=== PATIENT | male | born 1990 | race American Indian/Alaskan Native ===

== ENCOUNTER 2021-05-13 14:10 | Inpatient (IN) | payer SELFPAY ==
[2021-05-13] MEDS ORDERED: MORPHINE 4 MG/1 ML INJ IV ONE (14:29)
[2021-05-13] MEDS ORDERED: KETOROLAC 30 MG/1 ML INJ IV ONE (14:29)
[2021-05-13 15:04] LABS: INR 0.91 (0.87-1.13)
[2021-05-13 15:05] LABS: Hematocrit 44.2 % (35.5-45.6); Hemoglobin 14.3 gm/dl (11.8-15.2); Mean Corpuscular HGB Conc 33 % (32-34); Mean Corpuscular Volume 90 fl (84-94); Partial Thromboplastin Time 25.2 Sec. (24.2-36.6); Platelet Count 261 K/mm3 (140-440); Red Blood Count 4.92 M/mm3 (3.65-5.03); Red Cell Distribution Width 13.9 % (13.2-15.2)
--- NOTE | 2021-05-13 15:06 | Emergency Department Report ---
Blank Doc - Documentation Documentation: 31-year-old male that presents with sudden onset of nontraumatic right-sided chest pain and shortness of breath. 1- This is a initial triage assessment/medical screening only. Full assessment and work-up will be completed once the patient is in proper hospital gown, ED bed and in a private room setting. This initial assessment/diagnostic orders/clinical plan/ treatment(s) is/are subject to change based on pt's health status, clinical progression and re-assessment by fellow clinical providers in the ED. Further treatment and workup at subsequent clinical providers discretion. Patient/guardians urged not to elope from ED as their condition may be serious if not clinically assessed and managed. 2-cardiac work-up 3-radiologist called and stated patient has right pneumothorax 4- manager of tax notified and patient to be brought [facility]INCERE The patient was evaluated in the emergency department for symptoms described in the history of present illness. He/she was evaluated in the context of the global COVID-19 pandemic, which necessitated consideration that the patient might be at risk for infection with the virus that causes COVID-19. Institutional protocols and algorithms that pertain to the evaluation of patients at risk for COVID-19 are in a state of rapid change based on information released by regulatory bodies including the CDC and federal and state organizations. These policies and algorithms were followed during the patient's care in the emergency department. Please note that these policies, procedures and recommendations changed on a rapid basis.
--- NOTE | 2021-05-13 15:09 | XRay Report ---
CHEST PA AND LATERAL VIEWS INDICATION: Chest Pain. COMPARISON: None. FINDINGS: Support devices: None. Heart: Within normal limits. Lungs/Pleura: There is a moderate right pneumothorax, this measures 7.7 cm. No acute pulmonary findin gs. IMPRESSION: 1. Moderate right pneumothorax (approximately 40%). No acute pulmonary findings. No rib fractures are seen. CRITICAL RESULT: Right pneumothorax Time of Discovery (DAM ATTENDANT/CDT): 2:01 PM Time of Communication (DAM ATTENDANT/CDT): 2:04 PM Licensed Practitioner Receiving Report: Doug Sarmiento Read-Back Performed: Yes. Signer Name: Juan Antonio Ortega MD Signed: 05/13/2021 3:05 PM Workstation Name: [id number]
[2021-05-13] MEDS ORDERED: HYDROmorphone 1 MG/1 ML INJ IV ONE ×2 (15:10→17:57)
[2021-05-13 15:12] LABS: Alanine Aminotransferase 11 units/L (7-56); Albumin 3.9 g/dL (3.9-5); Blood Urea Nitrogen 11 mg/dL (9-20)
[2021-05-13 15:13] LABS: BUN/Creatinine Ratio 18
[2021-05-13 15:20] LABS: Calcium 9.1 mg/dL (8.4-10.2); Hemolysis Index 6
[2021-05-13] MEDS ORDERED: LIDOCAINE 1%/EPINEPHRINE 1:100,000 VIAL (20 ML) INFILTRATI NR (15:30)
[2021-05-13 15:38] LABS: Band Neutrophils # (Manual) 0.1 K/mm3; Large Platelets Few; Platelet Estimate Consistent w Auto; RBC Morphology Normal; Total Cells Counted 100
--- NOTE | 2021-05-13 15:46 | Emergency Department Report ---
HPI - General Chief Complaint: Chest Pain Time Seen by Provider: 05/13/21 14:22 - HPI HPI: 31-year-old male with no known past medical history presents complaining of acute onset of right-sided chest pain shortness of breath. The patient initially says that he woke up with the pain but his friend who is with him says that they smoked K2 out of the black and mild chest before this started. This was approximately 2 hours ago. The patient was screened and had initial orders placed including labs and a chest x-ray. Chest x-ray revealed 40% pneumothorax on the right. The patient denies any preceding symptoms or complaints including fever/chills, headache, vision change, chest pain, shortness of breath, cough, abdominal pain, focal weakness, sensory changes, or any other complaints ED Past Medical Hx - Past Medical History Previous Medical History?: No - Surgical History Past Surgical History?: Yes Additional Surgical History: inguinal hernia ED Review of Systems ROS: Stated complaint: CHEST PAIN Other details as noted in HPI Constitutional: denies: chills, fever Eyes: denies: eye pain, vision change ENT: denies: throat pain, congestion Respiratory: cough, shortness of breath Cardiovascular: chest pain. denies: palpitations, syncope Gastrointestinal: denies: abdominal pain, nausea, vomiting Genitourinary: denies: dysuria, frequency Musculoskeletal: denies: back pain, arthralgia Skin: denies: rash, lesions Neurological: denies: headache, weakness, numbness Hematological/Lymphatic: denies: easy bleeding Physical Exam - Physical Exam Vital Signs: Vital Signs 05/13/21 14:13 Temperature 97.9 F Pulse Rate 111 H Respiratory 18 Rate Blood Pressure 109/74 [Right] O2 Sat by Pulse 96 Oximetry Physical Exam: GENERAL: Well developed and well nourished. In mild distress secondary to pain HEAD: Normocephalic. No obvious signs of trauma. ENT: Moist mucous membranes. EYES: Extraocular movements are intact. Pupils are equal round and reactive to light bilaterally NECK: Supple. Full ROM is intact. Trachea is midline. LUNGS: Tachypneic. Decreased breath sounds noted at the right lung apex, otherwise clear. CARDIOVASCULAR: Regular rate and rhythm. No murmurs or rubs. VASCULAR: Cap refill < 2 seconds ABDOMEN: Abdomen is soft and nondistended. There is no significant tenderness, guarding or rebound. SKIN: Skin is warm and dry NEURO: Patient is awake, alert, and oriented. air analysis technician II-XII grossly intact. No focal deficits. Normal motor and sensory exam throughout. Normal speech. MUSCULOSKELETAL: No obvious deformities. No significant tenderness. Normal ROM throughout. ED Course Vital Signs 05/13/21 14:13 Temperature 97.9 F Pulse Rate 111 H Respiratory 18 Rate Blood Pressure 109/74 [Right] O2 Sat by Pulse 96 Oximetry - Chest Tube Chest Tube Location: fifth interspace Size of Turkish Tube (cm): 10 Chest Tube Procedure: betadine prep Anesthesia: 1% Lidocaine w/ Epi Volume Anesthetic (ccs): 7 [place] of Air [place]: Yes Number of Attempts: 2 Time of Successful Intubation: 04:20 Tube Sutured to Skin: Yes Post Procedure CXR?: Yes ED Medical Decision Making - Lab Data Result diagrams: 05/13/21 14:37 05/13/21 14:37 Lab Results 05/13/21 05/13/21 05/13/21 Range/Units 14:37 14:37 14:37 WBC 6.0 (4.5-11.0) K/mm3 RBC 4.92 (3.65-5.03) M/mm3 Hgb 14.3 (11.8-15.2) gm/dl Hct 44.2 (35.5-45.6) % MCV 90 (84-94) fl MCH 29 (28-32) pg MCHC 33 (32-34) % RDW 13.9 (13.2-15.2) % Plt Count 261 (140-440) K/mm3 Eos % (Auto) Nursery Laborer Baso % (Auto) Nursery Laborer Add Manual Diff Complete Total Counted 100 Seg Neutrophils % Nursery Laborer Seg Neuts % (Manual) 30.0 L (40.0-70.0) % Band Neutrophils % 1.0 % Lymphocytes % (Manual) 50.0 H (13.4-35.0) % Monocytes % (Manual) 3.0 (0.0-7.3) % Eosinophils % (Manual) 15.0 H (0.0-4.3) % Basophils % (Manual) 1.0 (0.0-1.8) % Nucleated RBC % Not Reportable Seg Neutrophils # Man 1.8 (1.8-7.7) K/mm3 Band Neutrophils # 0.1 K/mm3 Lymphocytes # (Manual) 3.0 (1.2-5.4) K/mm3 Abs React Lymphs (Man) 0.0 K/mm3 Monocytes # (Manual) 0.2 (0.0-0.8) K/mm3 Eosinophils # (Manual) 0.9 H (0.0-0.4) K/mm3 Basophils # (Manual) 0.1 (0.0-0.1) K/mm3 Metamyelocytes # 0.0 K/mm3 Myelocytes # 0.0 K/mm3 Promyelocytes # 0.0 K/mm3 Blast Cells # 0.0 K/mm3 WBC Morphology Not Reportable Hypersegmented Neuts Not Reportable Hyposegmented Neuts Not Reportable Hypogranular Neuts Not Reportable Smudge Cells Not Reportable Toxic Granulation Not Reportable Toxic Vacuolation Not Reportable Dohle Bodies Not Reportable Pelger-Huet Anomaly Not Reportable Branden Rods Not Reportable Platelet Estimate Consistent w auto Clumped Platelets Not Reportable Plt Clumps, EDTA Not Reportable Large Platelets Few Giant Platelets Not Reportable Platelet Satelliting Not Reportable Plt Morphology Comment Not Reportable RBC Morphology Normal Dimorphic RBCs Not Reportable Polychromasia Not Reportable Hypochromasia Not Reportable Poikilocytosis Not Reportable Anisocytosis Not Reportable Microcytosis Not Reportable Macrocytosis Not Reportable Spherocytes Not Reportable Pappenheimer Bodies Not Reportable Sickle Cells Not Reportable Target Cells Not Reportable Tear Drop Cells Not Reportable Ovalocytes Not Reportable Helmet Cells Not Reportable [place] Bodies Not Reportable [place] Rings Not Reportable [place] Cells Not Reportable Bite Cells Not Reportable Crenated Cell Not Reportable Elliptocytes Not Reportable Acanthocytes (Spur) Not Reportable Rouleaux Not Reportable Hemoglobin C Crystals Not Reportable Schistocytes Not Reportable Malaria parasites Not Reportable Dhaval Bodies Not Reportable Hem Pathologist Commnt No PT 13.3 (12.2-14.9) Sec. INR 0.91 (0.87-1.13) APTT 25.2 (24.2-36.6) Sec. D-Dimer < 135.00 (0-234) ng/mlDDU Sodium 140 (137-145) mmol/L Potassium 4.2 (3.6-5.0) mmol/L Chloride 104.8 (98-107) mmol/L Carbon Dioxide 25 (22-30) mmol/L Anion Gap 14 mmol/L BUN 11 (9-20) mg/dL Creatinine 0.6 L (0.8-1.3) mg/dL Estimated GFR > 60 ml/min BUN/Creatinine Ratio 18 % Glucose 122 H (75-100) mg/dL Calcium 9.1 (8.4-10.2) mg/dL Magnesium 1.60 L (1.7-2.3) mg/dL Total Bilirubin 0.30 (0.1-1.2) mg/dL AST 15 (5-40) units/L ALT 11 (7-56) units/L Alkaline Phosphatase 93 (35-129) units/L Troponin T < 0.010 (0.00-0.029) ng/mL Total Protein 7.3 (6.3-8.2) g/dL Albumin 3.9 (3.9-5) g/dL Albumin/Globulin Ratio 1.1 % - Radiology Data Radiology results: report reviewed, image reviewed - Medical Decision Making 31-year-old male presenting with acute onset right-sided chest pain shortness of breath after smoking K2. Patient had labs drawn in triage as well as chest x- ray which revealed 40% right-sided pneumothorax. Patient vital signs are stable. Labs have resulted and reveal no significant leukocytosis or anemia. Creatinine is within normal range and there are no significant electrolyte abnormalities. Right-sided pigtail chest tube was placed and subsequent x-ray reveals near complete reexpansion of the right lung. The patient will be admitted to the medicine for further management. I spoke with Dr. Boggs of general surgery regarding the case and he says he will place consult recommendations and manage the chest tube from the inpatient side. Spoke with Dr. Jacobo, the on-call hospitalist regarding the case. He accepts the patient for admission and will assume care. Critical care attestation.: If time is entered above; I have spent that time in minutes in the direct care of this critically ill patient, excluding procedure time. ED Disposition Clinical Impression: Pneumothorax, right Disposition: ADMITTED INPATIENT Is pt being admited?: Yes Referrals: PRIMARY CARE, [Primary Care Provider] - 3-5 Days
[2021-05-13] MEDS ORDERED: fentaNYL 100 MCG/2 ML INJ IV ONE ×2 (16:11→16:50)
[2021-05-13] MEDS ORDERED: fentaNYL 100 MCG/2 ML INJ ONE (16:11)
--- NOTE | 2021-05-13 17:00 | XRay Report ---
CHEST 1 VIEW 05/13/2021 4:41 PM INDICATION / CLINICAL INFORMATION: Confirm CT placement. COMPARISON: 05/13/2021 FINDINGS: SUPPORT DEVICES: Interval placement of a right pleural catheter HEART / MEDIASTINUM: Unchanged LUNGS / PLEURA: Near-complete resolution of right pneumothorax. There is mild atelectasis in the righ t base. ADDITIONAL FINDINGS: No significant additional findings. IMPRESSION: 1. Near-complete resolution of right pneumothorax following pleural catheter placement. Signer Name: Bruce Stern MD Signed: 05/13/2021 4:56 PM Workstation Name: [id number]
--- NOTE | 2021-05-13 17:16 | History and Physical Report ---
History of Present Illness Chief complaint: My chest hurts History of present illness: 31 YO Male with No PMH presents to ED for evaluation. Patient reports "my right side hurts". Patient states that he experienced sudden onset of pain on the right side of his chest approximately 2 hours prior to presentation. Patient transported to [facility] via private vehicle for further care and evaluation of the aforementioned symptoms. The patient was seen and evaluated in the emergency department. All lab and imaging studies reviewed. Patient with chest x-ray which revealed a right pneumothorax at 40%. A chest tube was placed in the emergency department. Surgery team consulted in ED. Patient admitted to medical floor due to increased risk of worsening symptoms. Patient denies trauma, fever, chills, chest pain, palpitation, productive cough, skin rash, recent ill contact, or known exposure to COVID-19. No prior admission for review. No medication listed at time of admission for reconciliation. Past History Past Medical History: No medical history Past Surgical History: No surgical history, Other (reviewed) Social history: single, smoking. denies: alcohol abuse, prescription drug abuse Family history: no significant family history, other (reviewed) Medications and Allergies Allergies Allergy/AdvReac Type Severity Reaction Status Date / Time peanut Allergy Swelling Verified 05/13/21 14:13 soy Allergy Swelling Verified 05/13/21 14:13 Active Meds: Active Medications Lidocaine/Epinephrine (Lidocaine 1%/Epinephrine 1:100,000 Vial (20 Ml)) 20 ml INFILTRATI ONCE NR Stop: 05/13/21 23:59 Review of Systems Constitutional: no weight loss, no weight gain, no fever, no chills Ears, nose, mouth and throat: no ear pain, no ear discharge, no decreased hearing, no nose pain Cardiovascular: no chest pain, no rapid/irregular heart beat, no edema, no syncope Respiratory: shortness of breath, pain on inspiration, no cough, no cough with sputum, no hemoptysis Gastrointestinal: no abdominal pain, no nausea, no vomiting, no constipation, no change in bowel habits Genitourinary Male: no hematuria, no flank pain, no discharge, no urinary hesitancy, no incontinence Rectal: no pain, no incontinence, no bleeding Musculoskeletal: no neck stiffness, no neck pain, no shooting arm pain, no low back pain, no shooting leg pain Integumentary: no rash, no pruritis, no redness, no sores, no wounds Neurological: no head injury, no weakness, no parathesias, no numbness, no syncope Psychiatric: no anxiety, no sleep disturbances, no insomnia, no hypersomnia, no change in libido, no suicidal ideation Endocrine: no polyphagia, no excessive thirst, no polydipsia Hematologic/Lymphatic: no easy bruising, no easy bleeding, no lymphedema Allergic/Immunologic: no urticaria, no allergic rhinitis, no anaphylaxis Exam - Constitutional Vitals: Temp Pulse Resp BP Pulse Ox 97.9 F 74 18 130/80 100 05/13/21 14:13 05/13/21 16:45 05/13/21 16:45 05/13/21 16:45 05/13/21 16:45 General appearance: Present: mild distress - EENT Eyes: Present: PERRL ENT: hearing intact, clear oral mucosa - Neck Neck: Present: supple, normal ROM - Respiratory Respiratory effort: normal, labored, accessory muscle use Respiratory: right: diminished - Cardiovascular Heart Sounds: Present: S1 & S2. Absent: rub, click - Extremities Extremities: pulses symmetrical, No edema Peripheral Pulses: within normal limits - Abdominal General gastrointestinal: Present: soft, non-tender, non-distended, normal bowel sounds Male genitourinary: Present: normal - Integumentary Integumentary: Present: clear, warm, dry - Musculoskeletal Musculoskeletal: gait normal, strength equal bilaterally - Psychiatric Psychiatric: appropriate mood/affect, intact judgment & insight - Neurologic Neurologic: CNII-XII intact, moves all extremities HEART Score - HEART Score Troponin: Troponin T < 0.010 ng/mL (0.00-0.029) 05/13/21 14:37 Results - Labs CBC & Chem 7: 05/13/21 14:37 05/13/21 14:37 Labs: Abnormal lab results 05/13/21 05/13/21 Range/Units 14:37 14:37 Seg Neuts % (Manual) 30.0 L (40.0-70.0) % Lymphocytes % (Manual) 50.0 H (13.4-35.0) % Eosinophils % (Manual) 15.0 H (0.0-4.3) % Eosinophils # (Manual) 0.9 H (0.0-0.4) K/mm3 Creatinine 0.6 L (0.8-1.3) mg/dL Glucose 122 H (75-100) mg/dL Magnesium 1.60 L (1.7-2.3) mg/dL Assessment and Plan - Patient Problems (1) Pneumothorax, right Current Visit: Yes Status: Acute Plan to address problem: Chest tube placed in the emergency department. Chest tube to low wall suction. Surgery team consulted, continue medical management. Repeat chest x-ray in a.m. Pain control. (2) Nicotine dependence Current Visit: Yes Status: Acute Qualifiers: Nicotine product type: cigarettes Substance use status: in withdrawal Qualified Code(s): F17.213 - Nicotine dependence, cigarettes, with withdrawal Plan to address problem: Smoking cessation counseling, supportive care, behavior change counseling, +15 minutes. (3) DVT prophylaxis Current Visit: Yes Status: Acute Plan to address problem: SCDs bilateral lower extremities while in bed
[2021-05-13] MEDS ORDERED: ALBUTEROL 2.5 MG/3 ML NEBU IH PRN (20:14)
[2021-05-13] MEDS ORDERED: ONDANSETRON 4 MG/2 ML INJ IV PRN (20:14)
[2021-05-13] MEDS ORDERED: ACETAMINOPHEN 325 MG TAB PO PRN (20:14)
[2021-05-13] MEDS: HYDROmorphone 1 MG/1 ML INJ IV PRN ×2 (20:33→23:32)
[2021-05-14] MEDS: oxyCODONE /ACETAMINOPHEN 5-325MG TAB PO PRN ×3 (01:38→20:05)
--- NOTE | 2021-05-14 04:02 | XRay Report ---
XR chest 1V ap INDICATION / CLINICAL INFORMATION: pneumothorax. COMPARISON: Radiograph from yesterday. FINDINGS: SUPPORT DEVICES: Right pleural catheter is unchanged. HEART /PULMONARY VASCULATURE: Unchanged. LUNGS / PLEURA: Mild bibasilar atelectasis is unchanged. No new or increasing airspace consolidation. No discrete pneumothorax. IMPRESSION: Stable position of right pleural catheter. No discrete pneumothorax. Signer Name: Fili Balderas MD Signed: 05/14/2021 3:58 AM Workstation Name: [id number]
[2021-05-14] MEDS ORDERED: MORPHINE 2 MG/1 ML INJ IV ONE (04:50)
[2021-05-14 04:56] LABS: Blood Urea Nitrogen 8 mg/dL (9-20); Calcium 9.1 mg/dL (8.4-10.2); Hemolysis Index 9
[2021-05-14 04:58] LABS: Hemoglobin 14.8 gm/dl (11.8-15.2); Mean Corpuscular HGB Conc 32 % (32-34); Mean Corpuscular Volume 89 fl (84-94); Platelet Count 269 K/mm3 (140-440); Red Blood Count 5.17 M/mm3 (3.65-5.03); Red Cell Distribution Width 13.7 % (13.2-15.2)
[2021-05-14 05:11] LABS: BUN/Creatinine Ratio 16
[2021-05-14 07:30] LABS: Total Cells Counted 100
[2021-05-14 07:31] LABS: Platelet Estimate Consistent w Auto; RBC Morphology Normal
[2021-05-14] MEDS: HYDROmorphone 1 MG/1 ML INJ IV PRN ×2 (08:06→21:58)
--- NOTE | 2021-05-14 10:19 | Consultation ---
History of Present Illness Consult date: 05/14/21 Reason for consult: other (Right spontaneous pneumothorax) - History of present illness History of present illness: This is a 31-year-old -[place] patient male who noticed a sudden onset shortness of breath reported in the emergency room was found to have a 20 to 30% pneumothorax that was spontaneous. He states that he was just walking when this shortness of breath started. In the emergency room he had a 9 Stateless tube placed with good resolution of the pneumothorax admission date and placement of the chest tube was on 05/13/2021. Past History Past Medical History: No medical history Past Surgical History: No surgical history, Other (reviewed) Social history: single, smoking. denies: alcohol abuse, prescription drug abuse Family history: no significant family history, other (reviewed) Medications and Allergies Allergies Allergy/AdvReac Type Severity Reaction Status Date / Time peanut Allergy Swelling Verified 05/13/21 14:13 soy Allergy Swelling Verified 05/13/21 14:13 Active Meds: Active Medications Acetaminophen (Acetaminophen 325 Mg Tab) 650 mg PO Q4H PRN PRN Reason: Pain MILD(1-3)/Fever >100.5/BARBA Albuterol (Albuterol 2.5 Mg/3 Ml Nebu) 2.5 mg IH Q4HRT PRN PRN Reason: Shortness Of Breath Hydromorphone HCl (Hydromorphone 1 Mg/1 Ml Inj) 0.5 mg IV Q3H PRN PRN Reason: Pain , Severe (7-10) Last Admin: 05/14/21 08:06 Dose: 0.5 mg Documented by: Ondansetron HCl (Ondansetron 4 Mg/2 Ml Inj) 4 mg IV Q8H PRN PRN Reason: Nausea And Vomiting Last Admin: 05/13/21 20:30 Dose: 4 mg Documented by: Oxycodone/Acetaminophen (Oxycodone /Acetaminophen 5-325mg Tab) 1 tab PO Q6H PRN PRN Reason: Pain, Moderate (4-6) Last Admin: 05/14/21 01:38 Dose: 1 tab Documented by: Sodium Chloride (Sodium Chloride 0.9% 10 Ml Flush Syringe) 10 ml IV BID SARITA Last Admin: 05/13/21 21:45 Dose: 10 ml Documented by: Sodium Chloride (Sodium Chloride 0.9% 10 Ml Flush Syringe) 10 ml IV PRN PRN PRN Reason: LINE FLUSH Exam Vital Signs Temp Pulse Resp BP Pulse Ox 97.9 F 111 H 18 109/74 96 05/13/21 14:13 05/13/21 14:13 05/13/21 14:13 05/13/21 14:13 05/13/21 14:13 - General physical appearance Positive: well developed, well nourished - Eyes Positive: PERRL, normal occular movement - Neck Positive: no masses, no bruits - Respiratory Positive: normal expansion, clear to percussion, other (Breath sounds are equal bilaterally.) - Cardiovascular Rhythm: regular - Extremities Extremities: no ischemia, No edema - Abdomen Abdomen: Present: soft, tender - Neurologic Neurologic: alert and oriented to time, place and person, motor strength and sensation are grossly intact, CN II-XII intact Results - Labs 05/14/21 04:06 05/14/21 04:06 Abnormal lab results 05/13/21 05/13/21 05/14/21 Range/Units 14:37 14:37 04:06 RBC 5.17 H (3.65-5.03) M/mm3 Hct 46.0 H (35.5-45.6) % Seg Neuts % (Manual) 30.0 L (40.0-70.0) % Lymphocytes % (Manual) 50.0 H 13.0 L (13.4-35.0) % Eosinophils % (Manual) 15.0 H (0.0-4.3) % Eosinophils # (Manual) 0.9 H 1.7 H (0.0-0.4) K/mm3 BUN (9-20) mg/dL Creatinine 0.6 L (0.8-1.3) mg/dL Glucose 122 H (75-100) mg/dL Magnesium 1.60 L (1.7-2.3) mg/dL 05/14/21 Range/Units 04:06 RBC (3.65-5.03) M/mm3 Hct (35.5-45.6) % Seg Neuts % (Manual) (40.0-70.0) % Lymphocytes % (Manual) (13.4-35.0) % Eosinophils % (Manual) (0.0-4.3) % Eosinophils # (Manual) (0.0-0.4) K/mm3 BUN 8 L (9-20) mg/dL Creatinine 0.5 L (0.8-1.3) mg/dL Glucose (75-100) mg/dL Magnesium (1.7-2.3) mg/dL Diabetes panel 05/13/21 05/14/21 Range/Units 14:37 04:06 Sodium 140 138 (137-145) mmol/L Potassium 4.2 3.6 (3.6-5.0) mmol/L Chloride 104.8 101.2 (98-107) mmol/L Carbon Dioxide 25 27 (22-30) mmol/L BUN 11 8 L (9-20) mg/dL Creatinine 0.6 L 0.5 L (0.8-1.3) mg/dL Glucose 122 H 97 (75-100) mg/dL Calcium 9.1 9.1 (8.4-10.2) mg/dL AST 15 (5-40) units/L ALT 11 (7-56) units/L Alkaline Phosphatase 93 (35-129) units/L Total Protein 7.3 (6.3-8.2) g/dL Albumin 3.9 (3.9-5) g/dL Calcium panel 05/13/21 05/14/21 Range/Units 14:37 04:06 Calcium 9.1 9.1 (8.4-10.2) mg/dL Albumin 3.9 (3.9-5) g/dL Pituitary panel 05/13/21 05/14/21 Range/Units 14:37 04:06 Sodium 140 138 (137-145) mmol/L Potassium 4.2 3.6 (3.6-5.0) mmol/L Chloride 104.8 101.2 (98-107) mmol/L Carbon Dioxide 25 27 (22-30) mmol/L BUN 11 8 L (9-20) mg/dL Creatinine 0.6 L 0.5 L (0.8-1.3) mg/dL Glucose 122 H 97 (75-100) mg/dL Calcium 9.1 9.1 (8.4-10.2) mg/dL Adrenal panel 05/13/21 05/14/21 Range/Units 14:37 04:06 Sodium 140 138 (137-145) mmol/L Potassium 4.2 3.6 (3.6-5.0) mmol/L Chloride 104.8 101.2 (98-107) mmol/L Carbon Dioxide 25 27 (22-30) mmol/L BUN 11 8 L (9-20) mg/dL Creatinine 0.6 L 0.5 L (0.8-1.3) mg/dL Glucose 122 H 97 (75-100) mg/dL Calcium 9.1 9.1 (8.4-10.2) mg/dL Total Bilirubin 0.30 (0.1-1.2) mg/dL AST 15 (5-40) units/L ALT 11 (7-56) units/L Alkaline Phosphatase 93 (35-129) units/L Total Protein 7.3 (6.3-8.2) g/dL Albumin 3.9 (3.9-5) g/dL Assessment and Plan Patient with spontaneous pneumothorax on the right side managed nicely with 9 Stateless pigtail catheter. Recommend clamping the tube today and if the p neumothorax does not recur removing the pigtail catheter later this afternoon.
--- NOTE | 2021-05-14 22:42 | Progress Note ---
Assessment and Plan - Patient Problems (1) Pneumothorax, right Current Visit: Yes Status: Acute Plan to address problem: Chest tube placed in the emergency department. Chest tube to low wall suction. Surgery team consulted, continue medical management. Repeat chest x-ray in a.m. Pain control. Continue chest tube Partial reexpansion Pain management (2) Nicotine dependence Current Visit: Yes Status: Acute Qualifiers: Nicotine product type: cigarettes Substance use status: in withdrawal Qualified Code(s): F17.213 - Nicotine dependence, cigarettes, with withdrawal Plan to address problem: Smoking cessation counseling, supportive care, behavior change counseling, +15 minutes. (3) DVT prophylaxis Current Visit: Yes Status: Acute Plan to address problem: SCDs bilateral lower extremities while in bed Subjective Date of service: 05/14/21 Principal diagnosis: Right pneumothorax Interval history: 31 YO Male with No PMH presents to ED for evaluation. Patient reports "my right side hurts". Patient states that he experienced sudden onset of pain on the right side of his chest approximately 2 hours prior to presentation. Patient transported to [facility] via private vehicle for further care and evaluation of the aforementioned symptoms. The patient was seen and evaluated in the emergency department. All lab and imaging studies reviewed. Patient with chest x-ray which revealed a right pneumothorax at 40%. A chest tube was placed in the emergency department. Surgery team consulted in ED. Patient admitted to medical floor due to increased risk of worsening symptoms. Patient denies trauma, fever, chills, chest pain, palpitation, productive cough, skin rash, recent ill contact, or known exposure to COVID-19. No prior admission for review. No medication listed at time of admission for reconciliation. 05/14/[address] Right lung partially expanded We will monitor him for another 24 hours No shortness of breath Objective - Constitutional Vitals: Vital Signs - 12hr 05/14/21 05/14/21 05/14/21 11:01 12:01 20:01 Pulse Rate 63 Respiratory 13 Rate Blood Pressure 119/86 128/74 112/79 O2 Sat by Pulse 98 96 98 Oximetry 05/14/21 21:58 Pulse Rate Respiratory 20 Rate Blood Pressure O2 Sat by Pulse Oximetry General appearance: Present: no acute distress, well-nourished - EENT Eyes: PERRL, EOM intact ENT: hearing intact, clear oral mucosa Ears: bilateral: normal - Neck Neck: supple, normal ROM - Respiratory Respiratory effort: normal Respiratory: right: diminished, bilateral: CTA - Breasts Breasts: normal - Cardiovascular Heart rate: 78 Rhythm: regular Heart Sounds: Present: S1 & S2. Absent: gallop, rub Extremities: pulses intact, No edema, normal color, Full ROM - Gastrointestinal General gastrointestinal: Present: soft, non-tender, non-distended, normal bowel sounds - Genitourinary Male genitourinary: normal - Integumentary Integumentary: clear, warm, dry - Musculoskeletal Musculoskeletal: 1, strength equal bilaterally - Neurologic Neurologic: moves all extremities - Psychiatric Psychiatric: memory intact, appropriate mood/affect, intact judgment & insight - Labs CBC & Chem 7: 05/14/21 04:06 05/14/21 04:06 Labs: Abnormal lab results 05/14/21 05/14/21 Range/Units 04:06 04:06 RBC 5.17 H (3.65-5.03) M/mm3 Hct 46.0 H (35.5-45.6) % Lymphocytes % (Manual) 13.0 L (13.4-35.0) % Eosinophils # (Manual) 1.7 H (0.0-0.4) K/mm3 BUN 8 L (9-20) mg/dL Creatinine 0.5 L (0.8-1.3) mg/dL HEART Score - HEART Score Troponin: Troponin T < 0.010 ng/mL (0.00-0.029) 05/13/21 14:37
[2021-05-15] MEDS: oxyCODONE /ACETAMINOPHEN 5-325MG TAB PO PRN ×2 (02:08→16:47)
[2021-05-15] MEDS: HYDROmorphone 1 MG/1 ML INJ IV PRN ×3 (06:31→22:08)
--- NOTE | 2021-05-15 08:30 | Progress Note ---
Assessment and Plan Patient with spontaneous pneumothorax on the right side managed nicely with 9 [place] pigtail catheter. Chest tube clamped yesterday with return of symptoms of pain and shortness of breath. We will attempt to manage on waterseal today and repeat chest x-ray after 2 hours of waterseal. Subjective Date of service: 05/15/21 Narrative: Chest tube clamped yesterday with return of symptoms of pain and shortness of breath. We will attempt to manage on waterseal today and repeat chest x-ray after 2 hours of waterseal. Objective Vital Signs - 12hr 05/14/21 05/14/21 05/14/21 21:05 21:58 22:00 Respiratory 19 20 20 Rate O2 Sat by Pulse 98 Oximetry 05/14/21 05/15/21 05/15/21 22:28 02:08 03:08 Respiratory 18 18 18 Rate O2 Sat by Pulse Oximetry 05/15/21 05/15/21 06:31 07:01 Respiratory 18 18 Rate O2 Sat by Pulse Oximetry - Respiratory normal expansion - Labs 05/14/21 04:06 05/14/21 04:06 - Imaging Chest x-ray: report reviewed, image reviewed
--- NOTE | 2021-05-15 11:39 | XRay Report ---
CHEST 1 VIEW 05/15/2021 10:30 AM INDICATION / CLINICAL INFORMATION: pain. COMPARISON: 05/14/2021 FINDINGS: SUPPORT DEVICES: Stable, satisfactory device positioning. HEART / MEDIASTINUM: No significant abnormality. LUNGS / PLEURA: No significant pulmonary or pleural abnormality. No pneumothorax. ADDITIONAL FINDINGS: No significant additional findings. IMPRESSION: 1. Stable positioning of a right-sided chest tube without pneumothorax. Signer Name: Christiano Abraham DO Signed: 05/15/2021 11:34 AM Workstation Name: [id number]
--- NOTE | 2021-05-15 14:28 | Electrocardiograph Report ---
[facility] Test Date: 2021-05-13 Test Time: 14:20:35 Pat Name: ADIS INFANTE Department: Room: A384 Gender: M Demolition Specialist: BING : 1990 Requested By: ALEXANDER BARAJAS Order Number: [id number] Reading MD: Radha Leone Measurements Intervals [place] Rate: 91 P: 25 AR: 205 QRS: 30 QRSD: 74 T: 45 QT: 340 QTc: 420 Interpretive Statements Sinus rhythm Prolonged AR interval No previous ECG available for comparison Electronically Signed On 05-15-2021 14:28:24 EST by Radha Leone
--- NOTE | 2021-05-15 15:23 | Progress Note ---
Assessment and Plan - Patient Problems (1) Pneumothorax, right Current Visit: Yes Status: Acute Plan to address problem: Chest tube placed in the emergency department. Chest tube to low wall suction. Surgery team consulted, continue medical management. Repeat chest x-ray in a.m. Pain control. Right chest fully expanded Chest x-rays reviewed along with the patient's family Chest tube to be removed in the morning (2) Nicotine dependence Current Visit: Yes Status: Acute Qualifiers: Nicotine product type: cigarettes Substance use status: in withdrawal Qualified Code(s): F17.213 - Nicotine dependence, cigarettes, with withdrawal Plan to address problem: Counseled about smoking cessation again. +15 minutes (3) DVT prophylaxis Current Visit: Yes Status: Acute Plan to address problem: SCDs bilateral lower extremities while in bed Subjective Date of service: 05/15/21 Principal diagnosis: Right pneumothorax Interval history: 31 YO Male with No PMH presents to ED for evaluation. Patient reports "my right side hurts". Patient states that he experienced sudden onset of pain on the right side of his chest approximately 2 hours prior to presentation. Patient transported to [facility] via private vehicle for further care and evaluation of the aforementioned symptoms. The patient was seen and evaluated in the emergency department. All lab and imaging studies reviewed. Patient with chest x-ray which revealed a right pneumothorax at 40%. A chest tube was placed in the em ergency department. Surgery team consulted in ED. Patient admitted to medical floor due to increased risk of worsening symptoms. Patient denies trauma, fever, chills, chest pain, palpitation, productive cough, skin rash, recent ill contact, or known exposure to COVID-19. No prior admission for review. No medication listed at time of admission for reconciliation. 05/14/[address] Right lung partially expanded We will monitor him for another 24 hours No shortness of breath 05/15/[address] Right lung fully expanded Remove the chest tube tomorrow morning Surgery consult and follow-up appreciated Objective - Constitutional Vitals: Vital Signs - 12hr 05/15/21 05/15/21 05/15/21 05:34 06:31 07:01 Temperature 97.8 F Pulse Rate 69 Respiratory 16 18 18 Rate Blood Pressure 125/79 O2 Sat by Pulse 96 Oximetry 05/15/21 05/15/21 10:00 11:08 Temperature 98.1 F Pulse Rate 64 Respiratory 20 16 Rate Blood Pressure 115/81 O2 Sat by Pulse 97 99 Oximetry General appearance: Present: no acute distress, well-nourished - EENT Eyes: PERRL, EOM intact ENT: hearing intact, clear oral mucosa Ears: bilateral: normal - Neck Neck: supple, normal ROM - Respiratory Respiratory effort: normal Respiratory: bilateral: CTA - Breasts Breasts: normal - Cardiovascular Heart rate: 70 Rhythm: regular Heart Sounds: Present: S1 & S2. Absent: gallop, rub Extremities: pulses intact, No edema, normal color, Full ROM - Gastrointestinal General gastrointestinal: Present: soft, non-tender, non-distended, normal bowel sounds - Genitourinary Male genitourinary: normal - Integumentary Integumentary: clear, warm, dry - Musculoskeletal Musculoskeletal: 1, strength equal bilaterally - Neurologic Neurologic: moves all extremities - Psychiatric Psychiatric: memory intact, appropriate mood/affect, intact judgment & insight - Labs CBC & Chem 7: 05/14/21 04:06 05/14/21 04:06 Labs: Chest x-ray Stable positioning of a right-sided chest tube without pneumothorax HEART Score - HEART Score Troponin: Troponin T < 0.010 ng/mL (0.00-0.029) 05/13/21 14:37
[2021-05-16] MEDS: HYDROmorphone 1 MG/1 ML INJ IV PRN (08:44)
--- NOTE | 2021-05-16 09:20 | XRay Report ---
CHEST 1 VIEW 05/16/2021 7:42 AM INDICATION / CLINICAL INFORMATION: chest tube placement. COMPARISON: 05/15/2021 FINDINGS: SUPPORT DEVICES: Right pleural catheter appears unchanged. HEART / MEDIASTINUM: No significant abnormality. LUNGS / PLEURA: No significant pulmonary or pleural abnormality. No pneumothorax. ADDITIONAL FINDINGS: No significant additional findings. IMPRESSION: 1. No acute findings. No significant change. Signer Name: Bruce Stern MD Signed: 05/16/2021 9:15 AM Workstation Name: [email or web address]
[2021-05-16 12:01] VITALS: BP 113/63
--- NOTE | 2021-05-16 14:05 | Discharge Summary ---
Providers - Providers Date of Admission: 05/13/21 20:14 Date of discharge: 05/16/21 Attending physician: JULY EM 05/13/21 17:57 Consult to Physician [CONS] Routine Comment: Consulting Provider: AMEYA RODGERS Physician Instructions: Reason For Exam: chest tube management Primary care physician: LEAD PROCESS ENGINEER Hospitalization Condition: Stable Hospital course: Subjective Date of service: 05/15/21 Principal diagnosis: Right pneumothorax Interval history: 31 YO Male with No PMH presents to ED for evaluation. Patient reports "my right side hurts". Patient states that he experienced sudden onset of pain on the right side of his chest approximately 2 hours prior to presentation. Patient transported to [facility] via private vehicle for further care and evaluation of the aforementioned symptoms. The patient was seen and evaluated in the emergency department. All lab and imaging studies reviewed. Patient with chest x-ray which revealed a right pneumothorax at 40%. A chest tube was placed in the emergency department. Surgery team consulted in ED. Patient admitted to medical floor due to increased risk of worsening symptoms. Patient denies trauma, fever, chills, chest pain, palpitation, productive cough, skin rash, recent ill contact, or known exposure to COVID-19. No prior admission for review. No medication listed at time of admission for reconciliation. 05/14/[address] Right lung partially expanded We will monitor him for another 24 hours No shortness of breath 05/15/[address] Right lung fully expanded Remove the chest tube tomorrow morning Surgery consult and follow-up appreciated 05/16/2021 Chest tube removed this morning Patient doing well No shortness of breath Assessment and Plan - Patient Problems (1) Pneumothorax, right Current Visit: Yes Status: Acute Plan to address problem: Chest tube placed in the emergency department. Chest tube to low wall suction. Surgery team consulted, continue medical management. Repeat chest x-ray in a.m. Pain control. Right chest fully expanded Chest x-rays reviewed along with the patient's family Chest tube removed this morning (2) Nicotine dependence Current Visit: Yes Status: Acute Qualifiers: Nicotine product type: cigarettes Substance use status: in withdrawal Qualified Code(s): F17.213 - Nicotine dependence, cigarettes, with withdrawal Plan to address problem: Counseled about smoking cessation again. +15 minutes (3) DVT prophylaxis Current Visit: Yes Status: Acute Plan to address problem: SCDs bilateral lower extremities while in bed Disposition: 01 HOME / SELF CARE / HOMELESS Final Discharge Diagnosis (Prints w/discharge instructions): Right pneumothorax. Nicotine dependence. Pain management Time spent for discharge: 35 minutes - Discharge Diagnoses (1) Pneumothorax, right Status: Acute (2) Nicotine dependence Status: Acute Qualifiers: Nicotine product type: cigarettes Substance use status: in withdrawal Qualified Code(s): F17.213 - Nicotine dependence, cigarettes, with withdrawal (3) DVT prophylaxis Status: Acute Core Measure Documentation - Palliative Care Palliative Care/ Comfort Measures: Not Applicable - Core Measures Any of the following diagnoses?: none Exam - Constitutional Vitals: Temp Pulse Resp BP Pulse Ox 98.0 F 77 18 113/63 95 05/16/21 10:46 05/16/21 10:46 05/16/21 10:46 05/16/21 10:46 05/16/21 10:46 General appearance: Present: no acute distress, well-nourished - EENT Eyes: Present: PERRL ENT: hearing intact, clear oral mucosa - Neck Neck: Present: supple, normal ROM - Respiratory Respiratory effort: normal Respiratory: bilateral: CTA - Cardiovascular Heart rate: 80 Rhythm: regular Heart Sounds: Present: S1 & S2. Absent: rub, click - Extremities Extremities: pulses symmetrical, No edema Peripheral Pulses: within normal limits - Abdominal General gastrointestinal: Present: soft, non-tender, non-distended, normal bowel sounds Male genitourinary: Present: normal - Integumentary Integumentary: Present: clear, warm, dry - Musculoskeletal Musculoskeletal: gait normal, strength equal bilaterally - Psychiatric Psychiatric: appropriate mood/affect, intact judgment & insight - Neurologic Neurologic: CNII-XII intact, moves all extremities Plan Activity: no restrictions Diet: regular Follow up with: AMEYA RODGERS MD [Staff Physician] - 7 Days ELOINA CORRAL MD [Staff Physician] - 7 Days
--- NOTE | 2021-05-16 15:01 | XRay Report ---
. CHEST 2 VIEWS INDICATION / CLINICAL INFORMATION: History of pneumothorax. COMPARISON: 05/16/2021 FINDINGS: SUPPORT DEVICES: None. HEART / MEDIASTINUM: No significant abnormality. LUNGS / PLEURA: No significant pulmonary or pleural abnormality. No pneumothorax. ADDITIONAL FINDINGS: No significant additional findings. IMPRESSION: 1. No acute findings. Signer Name: Dustin Doyle MD Signed: 05/16/2021 2:57 PM Workstation Name: [id number]
== END 2021-05-16 16:33 | disposition home or self-care (01) | DRG 201 ==
LOC: ED 14:10 → 3A 20:14
PROVIDERS: ADMIT Internal Medicine; ATTEND Internal Medicine
DX: J93.9 Pneumothorax, unspecified (principal); F17.200 Nicotine dependence, unspecified, uncomplicated
CPT/HCPCS: 36415; 71045; 71046; 80048; 80053; 83735; 84484; 85007; 85025; 85379; 85610; 85730; 93005; 99285; G0378; J3490; J1170; J2270; J2405; J3010

== ENCOUNTER 2021-05-20 14:29 | Emergency (ER) | payer SELFPAY ==
[2021-05-20] MEDS ORDERED: fentaNYL 100 MCG/2 ML INJ IV ONE (15:19)
--- NOTE | 2021-05-20 15:27 | XRay Report ---
CHEST 1 VIEW 05/20/2021 3:04 PM INDICATION / CLINICAL INFORMATION: Shortness of breath and recent right pneumothorax. COMPARISON: 05/16/21. FINDINGS: SUPPORT DEVICES: None. HEART / MEDIASTINUM: The heart size and pulmonary vasculature are normal. There is slight mediastinal shift to the left. LUNGS / PLEURA: Complete collapse of the right lung. The left lung is clear. No pleural abnormality. There is a very large right pneumothorax with associated complete collapse of the right lung ADDITIONAL FINDINGS: No significant additional findings. IMPRESSION: Very large recurrent right pneumothorax with complete collapse of the right lung and mild tension. CRITICAL RESULT Time of Discovery (GOLF CLUB FACER/CDT): 2:18 PM Time of Communication (GOLF CLUB FACER/CDT): 2:18 PM Licensed Practitioner Receiving Report: Dr. Rocha Read-Back Performed: Not applicable. Signer Name: Andriy Cruz MD Signed: 05/20/2021 3:22 PM Workstation Name: [id number]
[2021-05-20] MEDS ORDERED: ONDANSETRON 4 MG/2 ML INJ ONE (15:42)
[2021-05-20] MEDS ORDERED: ONDANSETRON 4 MG/2 ML INJ IV ONE (15:43)
[2021-05-20] MEDS ORDERED: LIDOCAINE 1%/EPINEPHRINE 1:100,000 VIAL (20 ML) INFILTRATI NR (16:00)
[2021-05-20] MEDS ORDERED: HYDROmorphone 1 MG/1 ML INJ IV ONE ×5 (16:37→22:31)
[2021-05-20] MEDS ORDERED: HYDROmorphone 1 MG/1 ML INJ ONE (16:38)
--- NOTE | 2021-05-20 16:38 | XRay Report ---
CHEST 1 VIEW 05/20/2021 4:21 PM INDICATION / CLINICAL INFORMATION: POST CHEST TUBE PLACEMENT. COMPARISON: Earlier today at 3:04 PM. FINDINGS: SUPPORT DEVICES: There is a new right pleural catheter with the tip overlying the upper hemithorax la terally. HEART / MEDIASTINUM: Mediastinal shift to the left has resolved. LUNGS / PLEURA: There has been reexpansion of the right lung. There is mild patchy right basilar atel ectasis. No pleural effusion. The left lung is clear. Large right pneumothorax has completely resolve d. ADDITIONAL FINDINGS: No significant additional findings. IMPRESSION: New right chest tube with interval resolution of the large pneumothorax. Mild patchy atel ectasis in the right lower lung. Signer Name: Andriy Cruz MD Signed: 05/20/2021 4:33 PM Workstation Name: [id number]
--- NOTE | 2021-05-20 16:58 | Emergency Department Report ---
ED Shortness of Breath HPI - General Chief Complaint: Dyspnea/Respdistress Stated Complaint: SPONTANEOUS PNEUMO Time Seen by Provider: 05/20/21 14:54 Source: EMS Mode of arrival: Stretcher Limitations: No Limitations - History of Present Illness Initial Comments: 31-year-old male presents to the hospital with recurrent complaint of right- sided chest pain and shortness of breath. Patient was seen here May 13 for similar symptoms and diagnosed with a 40% pneumothorax. Patient had a Cook thoracostomy tube placed and was subsequently discharged on May 16 with improved Pneumonthorax and chest tube was removed prior to discharge. It is documented on previous regular patient symptoms while smoking K2 and black amount. Patient states that he smokes Black and mild and marijuana only. Today while at rest he had recurrent right-sided chest pain and shortness of breath with pain with swallowing. Patient transported well on nonrebreather with suspected recurrent pneumothorax due to diminished breath sounds on the right - Related Data Previous Rx's Medication Instructions Recorded Last Taken Type Oxycodone HCl/Acetaminophen 1 each PO Q6HR PRN #10 tablet 05/16/21 Unknown Rx [Percocet 7.5/325 mg] Allergies Allergy/AdvReac Type Severity Reaction Status Date / Time corn Allergy Swelling Verified 05/16/21 14:05 peanut Allergy Swelling Verified 05/13/21 14:13 soy Allergy Swelling Verified 05/13/21 14:13 green beans Allergy Swelling Uncoded 05/16/21 14:05 ED Review of Systems ROS: Stated complaint: SPONTANEOUS PNEUMO Other details as noted in HPI Comment: All other systems reviewed and negative ED Past Medical Hx - Past Medical History Hx Congestive Heart Failure: No Hx Diabetes: No Hx Asthma: Yes Hx COPD: No Hx HIV: No - Surgical History Hx Pacemaker: No Additional Surgical History: inguinal hernia - Social History Smoking Status: Current Every Day Smoker - Medications Home Medications: Home Medications Medication Instructions Recorded Confirmed Last Taken Type Oxycodone HCl/Acetaminophen 1 each PO Q6HR PRN #10 tablet 05/16/21 Unknown Rx [Percocet 7.5/325 mg] ED Physical Exam - General Limitations: No Limitations - Other Other exam information: General: No acute distress Head: Atraumatic Eyes: normal appearance ENT: Moist mucous membranes Neck: Normal appearance, no midline tenderness Chest: Absent right-sided breath sounds CV: Regular rate and rhythm Abdomen: Soft, normal bowel sounds, nontender, nondistended, no rebound or guarding Back: Normal inspection Extremity: Normal inspection, full range of motion Neuro: Alert O x 3, no facial asymmetry, speech clear, no gross motor sensory deficit Psych: Appropriate behavior Skin: No rash ED Course Vital Signs 05/20/21 05/20/21 05/20/21 15:50 16:45 16:50 Respiratory 20 20 16 Rate 05/20/21 18:15 Respiratory 13 Rate - Consultations Consultation #1: 05/20/21 16:[address] Triplett home demonstrator surgeon for chest tube management during admission 05/20/21 17:00 DR Triplett returned call and will manage chest tube during admission. 05/20/21 17:09 case d/w DR Vega pulmonology, rec transfer to hospital with cardiothoracic surgery for possible VATS procedure 05/20/21 17:[address] Acevedo cardiothoracic surgeon at [facility] who has accepted patient for transfer. Received call back from [facility] transfer service as well that there is a bed available - Chest Tube Chest Tube Location: fifth interspace Size of Upper Sor[place] Tube (cm): 29 Chest Tube Procedure: betadine prep, sterile drapes applied, sterile dressing applied Anesthesia: 1% Lidocaine Volume Anesthetic (ccs): 5 [place] of Air [place]: Yes Number of Attempts: 2 Time of Successful Intubation: 15:50 Tube Drainage: see nurses notes Tube Sutured to Skin: Yes Post Procedure CXR?: Yes Progress: nurses note states a 16fr tube was placed. this is incorrect. it is a 10.2fr tub e ED Medical Decision Making - Lab Data Result diagrams: 05/20/21 16:45 - Radiology Data Radiology results: report reviewed CHEST 1 VIEW 05/20/2021 3:04 PM INDICATION / CLINICAL INFORMATION: Shortness of breath and recent right pneumothorax. COMPARISON: 05/16/21. FINDINGS: SUPPORT DEVICES: None. HEART / MEDIASTINUM: The heart size and pulmonary vasculature are normal. There is slight mediastinal shift to the left. LUNGS / PLEURA: Complete collapse of the right lung. The left lung is clear. No pleural abnormality. There is a very large right pneumothorax with associated complete collapse of the right lung ADDITIONAL FINDINGS: No significant additional findings. IMPRESSION: Very large recurrent right pneumothorax with complete collapse of the right lung and mild tension. CHEST 1 VIEW 05/20/2021 4:21 PM INDICATION / CLINICAL INFORMATION: POST CHEST TUBE PLACEMENT. COMPARISON: Earlier today at 3:04 PM. FINDINGS: SUPPORT DEVICES: There is a new right pleural catheter with the tip overlying the upper hemithorax laterally. HEART / MEDIASTINUM: Mediastinal shift to the left has resolved. LUNGS / PLEURA: There has been reexpansion of the right lung. There is mild patchy right basilar atelectasis. No pleural effusion. The left lung is clear. Large right pneumothorax has completely resolved. ADDITIONAL FINDINGS: No significant additional findings. IMPRESSION: New right chest tube with interval resolution of the large pneumothorax. Mild patchy atelectasis in the right lower lung. - Medical Decision Making 31-year-old male presents with sudden onset shortness of breath and right-sided chest pain presents with recurrent right-sided pneumothorax in 1 week's time. Successful placement of right sided thoracostomy tube with improvement of right- sided pneumothorax in the ED. Case discussed with on-call exercise teacher and surgeon who recommended transfer for possible VATS procedure. Case discussed with [facility] cardiothoracic surgery Dr. Acevedo who has accepted patient for transfer to [facility]. Patient requiring intermittent Dilaudid for pain control Critical Care Time: No Critical care attestation.: If time is entered above; I have spent that time in minutes in the direct care of this critically ill patient, excluding procedure time. ED Disposition Clinical Impression: Pneumothorax, right, Recurrent pneumothorax Disposition: 02 [facility] Is pt being admited?: No Condition: Stable Time of Disposition: 19:19 (awaiting transport)
[2021-05-20 18:11] LABS: Alanine Aminotransferase 10 units/L (7-56); Albumin 4.2 g/dL (3.9-5); Blood Urea Nitrogen 12 mg/dL (9-20); Calcium 9.2 mg/dL (8.4-10.2); Hemolysis Index 21
[2021-05-20 18:22] LABS: BUN/Creatinine Ratio 24
[2021-05-20 18:47] LABS: Basophils # (Auto) 0.1 K/mm3 (0.0-0.1); Basophils % (Auto) 0.7 % (0.0-1.8); Eosinophils # (Auto) 0.4 K/mm3 (0.0-0.4); Eosinophils % (Auto) 4.8 % (0.0-4.3); Hematocrit 43.6 % (35.5-45.6); Hemoglobin 14.1 gm/dl (11.8-15.2); Lymphocytes # (Auto) 2.3 K/mm3 (1.2-5.4); Lymphocytes % (Auto) 24.9 % (13.4-35.0); Mean Corpuscular HGB Conc 32 % (32-34); Mean Corpuscular Volume 89 fl (84-94); Monocytes # (Auto) 0.6 K/mm3 (0.0-0.8); Monocytes % (Auto) 6.1 % (0.0-7.3); Platelet Count 275 K/mm3 (140-440); Red Blood Count 4.91 M/mm3 (3.65-5.03); Red Cell Distribution Width 13.6 % (13.2-15.2)
[2021-05-20] MEDS ORDERED: SODIUM CHLORIDE 0.9% 1000 ML 1,000 ML ONE (22:36)
[2021-05-21 00:15] VITALS: BP 128/69
--- NOTE | 2021-05-24 10:36 | Electrocardiograph Report ---
[facility] Test Date: 2021-05-20 Test Time: 14:42:33 Pat Name: ADIS INFANTE Department: Room: Gender: M Beater Boss: LEEANN : 1990 Requested By: ROHAN WADSWORTH Order Number: [id number] Reading MD: Rojas Pope Measurements Intervals [place] Rate: 77 P: 79 [place]: 188 QRS: 80 QRSD: 81 T: 70 QT: 356 QTc: 404 Interpretive Statements Sinus rhythm Probable left ventricular hypertrophy Compared to ECG 05/13/2021 14:20:35 no significant change noted. Electronically Signed On 05-24-2021 10:35:58 EST by Rojas Pope
== END 2021-05-20 23:50 | disposition short-term general hospital (02) ==
LOC: ED 14:29
DX: J93.9 Pneumothorax, unspecified (principal); J45.909 Unspecified asthma, uncomplicated; F17.200 Nicotine dependence, unspecified, uncomplicated; Z91.010 Allergy to peanuts; Z91.018 Allergy to other foods; Z79.899 Other long term (current) drug therapy
CPT/HCPCS: 32551; 36415; 71045; 80053; 85025; 93005; 96374; 96375; 96376; 99285; J1170; J2405; J3010; J3490; J7030; Q0162

== ENCOUNTER 2021-07-18 09:40 | Emergency (ER) | payer SELFPAY | END 2021-07-18 12:20 | disposition left against medical advice (07) | LOC: ED 09:40 | DX: R05.9 Cough, unspecified (principal); R07.0 Pain in throat; Z53.21 Procedure and treatment not carried out due to patient leaving prior to being seen by health care provider ==